=== PATIENT | male | born 1970 | race Caucasian/White ===

== ENCOUNTER 2017-01-07 08:23 | Emergency (ER) | payer OTHER ==
[~2017-01-07 08:23] MED LIST: CIPRO PO; FLAGYL PO; HYDROCODON-ACE1 EAC9 PO; LASIX20 MG PO; NO MEDICATIONS; ZOLOFT100 MG PO; ZYRTEC PO
[2017-01-07 09:51] LABS: CALCIUM SERUM 9.1 mg/dL (8.4-10.2); CREATININE SERUM 0.9 mg/dL (0.6-1.4); GLOM FILT RATE Estimated 100.6 mL/min (>60)
[2017-01-07 10:51] LABS: URINE SOURCE CLEAN CATCH
[2017-01-07 10:53] LABS: URINE APPEARANCE CLEAR; URINE BILIRUBIN NEG (NEG); URINE BLOOD TRACE-INTACT (NEG); URINE COLOR YELLOW; URINE GLUCOSE 100 MG/DL (NORM); URINE KETONE TRACE (NEG); URINE LEUKOCYTE ESTERASE NEG (NEG); URINE NITRATE NEG (NEG); URINE PROTEIN 2+ (NEG); URINE SPECIFIC GRAVITY >=1.030 (1.003-1.035)
[2017-01-07 11:03] LABS: MICRO INDICATED? YES
[2017-01-07 11:10] LABS: CULTURE INDICATED? YES; URINE BACTERIA NEG (NEG); URINE SQUAMOUS EPITHELIAL CELL OCCAS /[HPF]
[2017-01-07 11:11] LABS: URINE AMORPHOUS SEDIMENT AMORP URATES; URINE MUCUS PRESENT; URINE SPERM PRESENT
== END 2017-01-07 11:51 | disposition home or self-care (01) ==
LOC: SED 08:23
PROVIDERS: Emergency Medicine
DX: K21.9 Gastro-esophageal reflux disease without esophagitis (principal); F41.9 Anxiety disorder, unspecified; F17.200 Nicotine dependence, unspecified, uncomplicated
CPT/HCPCS: 36415; 80048; 81003; 83630; 87045; 87086; 87427; 87899; 96361; 96374; 96375; 99284; J2405